=== PATIENT | female | born 1995 | race Caucasian/White ===

== ENCOUNTER → 2023-08-21 17:40 | Outpatient (REF) | payer BC, SELFPAY ==
[2023-08-21 19:03] LABS: TSH < 0.02 uIU/ml (0.47-4.68)
== END ==
LOC: CLAB 17:40
PROVIDERS: ATTENDING PHYSICIAN Physician Assistant Medical
DX: E03.8 Other specified hypothyroidism (principal)
CPT/HCPCS: 84443

== ENCOUNTER → 2023-08-24 09:45 | Outpatient (REF) | payer BC, SELFPAY ==
[2023-08-24 17:52] LABS: % Basophils 0.9 % (0-2); % Immature Granulocytes 0.3 % (0-0.5); % Lymphocytes 20.8 % (20.5-51.1); % Monocytes 10.6 % (1.7-9.3); % Neutrophils 66.4 % (42.2-75.2); Absolute Basophils 0.1 10^3/uL (0-0.2); Absolute Eosinophils 0.1 10^3/uL (0-0.7); Absolute Lymphocytes 1.4 10^3/uL (1.2-3.4); Absolute Monocytes 0.7 10^3/uL (0.1-0.6); Absolute Neutrophils 4.5 10^3/uL (1.4-6.5); Hematocrit 40.9 % (37.0-47.0); Hemoglobin 13.2 g/dL (12.0-16.0); Mean Corp Hgb Conc. 32.3 g/dL (33.0-37.0); Mean Corpuscular Hgb 29.4 pg (27.0-31.0); Mean Corpuscular Volume 91.1 fL (81.0-99.0); Mean Platelet Volume 10.4 fL (7.4-10.4); Nucleated Red Blood Cells % 0 %; Platelet Count 340 10^3/uL (130-400); Red Blood Cell Count 4.49 10^6/uL (4.20-5.40); Red Cell Dist. Width 11.9 % (11.5-14.5); White Blood Cell Count 6.8 10^3/uL (4.8-10.8)
== END ==
LOC: CLAB 09:45
PROVIDERS: ATTENDING PHYSICIAN Physician Assistant Medical
DX: Z13.1 Encounter for screening for diabetes mellitus (principal); Z13.220 Encounter for screening for lipoid disorders
CPT/HCPCS: 36415; 85025

== ENCOUNTER → 2023-09-01 12:02 | Outpatient (REF) | payer BC, SELFPAY | LOC: CPAP 12:02 | PROVIDERS: ATTENDING PHYSICIAN Nurse Practitioner Adult Health | DX: Z01.419 Encounter for gynecological examination (general) (routine) without abnormal findings (principal); Z11.3 Encounter for screening for infections with a predominantly sexual mode of transmission | CPT/HCPCS: 87491; 87591 ==

== ENCOUNTER → 2023-09-07 09:12 | Outpatient (REF) | payer BC, SELFPAY | LOC: WDC 09:12 | PROVIDERS: ATTENDING PHYSICIAN Nurse Practitioner Adult Health; FAMILY PHYSICIAN Physician Assistant Medical | DX: N63.20 Unspecified lump in the left breast, unspecified quadrant (principal); N63.23 Unspecified lump in the left breast, lower outer quadrant | CPT/HCPCS: 76642 ==

== ENCOUNTER → 2023-09-15 09:22 | Outpatient (REF) | payer BC, SELFPAY | LOC: WDC 09:22 | PROVIDERS: ATTENDING PHYSICIAN Nurse Practitioner Adult Health; FAMILY PHYSICIAN Physician Assistant Medical | DX: N63.20 Unspecified lump in the left breast, unspecified quadrant (principal); N63.23 Unspecified lump in the left breast, lower outer quadrant | CPT/HCPCS: 88305; 19083; A4648 ==

== ENCOUNTER → 2023-10-02 11:07 | Outpatient (REF) | payer BC, SELFPAY ==
[2023-10-02 21:39] LABS: Blood Urea Nitrogen 9 mg/dl (7-17); Calcium 10.3 mg/dl (8.4-10.2); Carbon Dioxide 24 mmol/L (22-30); Chloride 103 mmol/L (98-107); Glucose 90 mg/dl (70-99); Potassium 4.6 mmol/L (3.5-5.1); Sodium 137 mmol/L (135-145); eGFR > 60.00
[2023-10-02 21:53] LABS: Free T4 1.84 ng/dl (0.78-2.19)
[2023-10-02 22:07] LABS: TSH 0.11 uIU/ml (0.47-4.68)
== END ==
LOC: CLAB 11:07
PROVIDERS: ATTENDING PHYSICIAN Physician Assistant Medical
DX: E03.8 Other specified hypothyroidism (principal); E87.1 Hypo-osmolality and hyponatremia
CPT/HCPCS: 36415; 80048; 84439; 84443

== ENCOUNTER → 2023-11-30 07:53 | Outpatient (REF) | payer BC, SELFPAY | LOC: WDC 07:53 | PROVIDERS: ATTENDING PHYSICIAN Surgery | DX: N63.23 Unspecified lump in the left breast, lower outer quadrant (principal) | CPT/HCPCS: 19285; 77065; A4648 ==

== ENCOUNTER 2023-12-01 06:17 | Day surgery (SDC) | payer BC, SELFPAY ==
[2023-11-24 08:57] LABS: Hematocrit 41.2 % (37.0-47.0); Hemoglobin 14.5 g/dL (12.0-16.0); Mean Corp Hgb Conc. 35.2 g/dL (33.0-37.0); Mean Corpuscular Hgb 30.7 pg (27.0-31.0); Mean Corpuscular Volume 87.3 fL (81.0-99.0); Mean Platelet Volume 10.2 fL (7.4-10.4); Platelet Count 287 10^3/uL (130-400); Red Blood Cell Count 4.72 10^6/uL (4.20-5.40); Red Cell Dist. Width 11.7 % (11.5-14.5); White Blood Cell Count 5.9 10^3/uL (4.8-10.8)
[2023-11-24 10:29] VITALS: BMI 25.7
[2023-11-24 12:21] LABS: ALT (SGPT) 12 U/L (0-35); AST (SGOT) 18 U/L (14-36); Albumin 4.8 g/dl (3.5-5.0); Alkaline Phosphatase 49 U/L (38-126); Blood Urea Nitrogen 13 mg/dl (7-17); Calcium 9.9 mg/dl (8.4-10.2); Carbon Dioxide 23 mmol/L (22-30); Chloride 104 mmol/L (98-107); Estimated Creatinine Clearance 91 ml/min; Glucose 83 mg/dl (70-99); Potassium 4.5 mmol/L (3.5-5.1); Sodium 138 mmol/L (135-145); Total Bilirubin 0.6 mg/dl (0.2-1.3); Total Protein 7.1 g/dl (6.3-8.2); eGFR > 60.00
[2023-11-24 12:28] LABS: Prealbumin (Transthyretin) 25.3 mg/dl (17.6-36.0)
[2023-12-01] VITALS (10 sets, daily range): BP systolic 111–152; BP diastolic 72–94; BMI 25.7
[2023-12-01] MEDS: TYLENOL 1000 MG PO (14:25)
== END 2023-12-01 17:35 | disposition home or self-care (01) ==
LOC: SDS 06:17
PROVIDERS: ATTENDING PHYSICIAN Surgery; FAMILY PHYSICIAN Physician Assistant Medical
DX: D24.2 Benign neoplasm of left breast (principal)
CPT/HCPCS: 19301; 88307; 36415; 76098; 80053; 82306; 84134; 85027; 88313; 88341; 88342; A4648

== ENCOUNTER → 2023-12-08 09:39 | Outpatient (REF) | payer BC, SELFPAY | LOC: CLAB 09:39 | PROVIDERS: ATTENDING PHYSICIAN Nurse Practitioner Adult Health | DX: N76.0 Acute vaginitis (principal) | CPT/HCPCS: 87070; 87102 ==

== ENCOUNTER → 2024-01-03 18:02 | Outpatient (REF) | payer BC, SELFPAY ==
[2024-01-03 20:23] LABS: ALT (SGPT) 15 U/L (0-35); AST (SGOT) 20 U/L (14-36); Albumin 4.7 g/dl (3.5-5.0); Alkaline Phosphatase 54 U/L (38-126); Direct Bilirubin 0.2 mg/dl (0.0-0.4); HDL Cholesterol 61 mg/dl; LDL Cholesterol, Calculated 111 mg/dl; Total Bilirubin 0.5 mg/dl (0.2-1.3); Total Cholesterol 185 mg/dl (50-199); Total Protein 7.1 g/dl (6.3-8.2); Triglyceride 67 mg/dl (10-149); Very Low Density Lipoprotein 13 mg/dl (0-30)
== END ==
LOC: CLAB 18:02
PROVIDERS: ATTENDING PHYSICIAN General Practice
DX: L70.0 Acne vulgaris (principal)
CPT/HCPCS: 80061; 80076

== ENCOUNTER → 2024-02-08 16:08 | Outpatient (REF) | payer BC, SELFPAY ==
[2024-02-08 17:55] LABS: ALT (SGPT) 16 U/L (0-35); AST (SGOT) 21 U/L (14-36); Albumin 4.6 g/dl (3.5-5.0); Alkaline Phosphatase 45 U/L (38-126); Direct Bilirubin 0.1 mg/dl (0.0-0.4); HDL Cholesterol 57 mg/dl; LDL Cholesterol, Calculated 114 mg/dl; Total Bilirubin 0.2 mg/dl (0.2-1.3); Total Cholesterol 182 mg/dl (50-199); Total Protein 7.1 g/dl (6.3-8.2); Triglyceride 59 mg/dl (10-149); Very Low Density Lipoprotein 11 mg/dl (0-30)
== END ==
LOC: CLAB 16:08
PROVIDERS: ATTENDING PHYSICIAN General Practice
DX: L70.0 Acne vulgaris (principal)
CPT/HCPCS: 36415; 80061; 80076

== ENCOUNTER → 2024-03-11 12:01 | Outpatient (REF) | payer BC, SELFPAY ==
[2024-03-11 13:04] LABS: ALT (SGPT) 15 U/L (0-35); AST (SGOT) 20 U/L (14-36); Albumin 4.5 g/dl (3.5-5.0); Alkaline Phosphatase 43 U/L (38-126); Direct Bilirubin 0.2 mg/dl (0.0-0.4); HDL Cholesterol 56 mg/dl; LDL Cholesterol, Calculated 131 mg/dl; Total Bilirubin 0.2 mg/dl (0.2-1.3); Total Cholesterol 197 mg/dl (50-199); Total Protein 7.2 g/dl (6.3-8.2); Triglyceride 54 mg/dl (10-149); Very Low Density Lipoprotein 10 mg/dl (0-30)
== END ==
LOC: CLAB 12:01
PROVIDERS: ATTENDING PHYSICIAN General Practice
DX: L70.0 Acne vulgaris (principal)
CPT/HCPCS: 36415; 80061; 80076

== ENCOUNTER → 2024-04-04 13:35 | Outpatient (REF) | payer BC, SELFPAY | LOC: WDC 13:35 | PROVIDERS: ATTENDING PHYSICIAN Nurse Practitioner Adult Health; FAMILY PHYSICIAN Physician Assistant Medical | DX: N63.10 Unspecified lump in the right breast, unspecified quadrant (principal); N63.11 Unspecified lump in the right breast, upper outer quadrant | CPT/HCPCS: 76642 ==

== ENCOUNTER → 2024-05-20 08:31 | Outpatient (REF) | payer BC, SELFPAY | LOC: HWRAD 08:31 | PROVIDERS: ATTENDING PHYSICIAN Obstetrics & Gynecology Gynecology; FAMILY PHYSICIAN Physician Assistant Medical | DX: T83.39XA Other mechanical complication of intrauterine contraceptive device, initial encounter (principal) | CPT/HCPCS: 76830; 76856 ==

== ENCOUNTER → 2024-07-02 12:27 | Outpatient (REF) | payer BC, SELFPAY | LOC: PAVMRI 12:27 | PROVIDERS: ATTENDING PHYSICIAN Obstetrics & Gynecology Gynecology; FAMILY PHYSICIAN Physician Assistant Medical | DX: N94.9 Unspecified condition associated with female genital organs and menstrual cycle (principal) | CPT/HCPCS: 72197; A9575 ==

== ENCOUNTER → 2024-07-19 08:10 | Outpatient (REF) | payer BC, SELFPAY | LOC: CLAB 08:10 | PROVIDERS: ATTENDING PHYSICIAN Obstetrics & Gynecology Gynecology | DX: Z20.2 Contact with and (suspected) exposure to infections with a predominantly sexual mode of transmission (principal) | CPT/HCPCS: 87491; 87591 ==

== ENCOUNTER → 2024-07-22 15:57 | Outpatient (REF) | payer BC, SELFPAY ==
[2024-07-22 17:32] LABS: ALT (SGPT) 13 U/L (0-35); AST (SGOT) 17 U/L (14-36); Albumin 4.6 g/dl (3.5-5.0); Alkaline Phosphatase 56 U/L (38-126); Direct Bilirubin 0.2 mg/dl (0.0-0.4); HDL Cholesterol 63 mg/dl; LDL Cholesterol, Calculated 93 mg/dl; Total Bilirubin 0.5 mg/dl (0.2-1.3); Total Cholesterol 173 mg/dl (50-199); Triglyceride 87 mg/dl (10-149); Very Low Density Lipoprotein 17 mg/dl (0-30)
== END ==
LOC: CLAB 15:57
PROVIDERS: ATTENDING PHYSICIAN General Practice
DX: L70.0 Acne vulgaris (principal)
CPT/HCPCS: 36415; 80061; 80076

== ENCOUNTER → 2024-09-23 16:58 | Outpatient (REF) | payer BC, SELFPAY ==
[2024-09-23 18:11] LABS: Free T4 1.74 ng/dl (0.78-2.19)
[2024-09-23 18:25] LABS: TSH 4.87 uIU/ml (0.47-4.68)
== END ==
LOC: CLAB 16:58
PROVIDERS: ATTENDING PHYSICIAN Physician Assistant
DX: E03.9 Hypothyroidism, unspecified (principal)
CPT/HCPCS: 36415; 84439; 84443

== ENCOUNTER → 2024-10-11 08:40 | Outpatient (REF) | payer BC, SELFPAY | LOC: RAD 08:40 | PROVIDERS: ATTENDING PHYSICIAN Obstetrics & Gynecology Gynecology; FAMILY PHYSICIAN Physician Assistant Medical | DX: N83.209 Unspecified ovarian cyst, unspecified side (principal) | CPT/HCPCS: 76830; 76856 ==

== ENCOUNTER → 2025-02-17 13:08 | Outpatient (REF) | payer BC, SELFPAY ==
[2025-02-17 15:31] LABS: TSH 6.44 uIU/ml (0.47-4.68)
== END ==
LOC: CLAB 13:08
PROVIDERS: ATTENDING PHYSICIAN Physician Assistant Medical
DX: E03.9 Hypothyroidism, unspecified (principal)
CPT/HCPCS: 84439; 84443

== ENCOUNTER → 2025-03-31 18:04 | Outpatient (REF) | payer BC, SELFPAY ==
[2025-03-31 19:07] LABS: TSH 1.93 uIU/ml (0.47-4.68)
== END ==
LOC: CLAB 18:04
PROVIDERS: ATTENDING PHYSICIAN Physician Assistant Medical
DX: E03.8 Other specified hypothyroidism (principal)
CPT/HCPCS: 36415; 84439; 84443